=== PATIENT | female | born 1955 | race Caucasian/White ===

== ENCOUNTER 2019-02-23 07:39 | Day surgery (SDC) ==
[2019-02-23] MEDS: TETRACAINE 0.5% UNIT-DOSE OP PRN ×4 (07:55→08:51)
[2019-02-23] MEDS: BETADINE OPTH PREP OP PRN ×3 (07:55→08:40)
[2019-02-23] MEDS: CYCLOGYL 2% OPTH OP PRN ×3 (07:56→08:06)
[2019-02-23] MEDS ORDERED: BSS WITH EPINEPHRINE OP ONE (08:10)
[2019-02-23] MEDS ORDERED: ZOFRAN 4 MG/2 ML IVP ONE (08:10)
[2019-02-23] MEDS ORDERED: LIDOCAINE 1% 20 ML MDV ID STA (08:10)
[2019-02-23] MEDS ORDERED: LIDOCAINE 1%/PHENYLEPHRINE 1.5% BSS (SURGERY) INTRAOCULA ONE (08:10)
[2019-02-23] MEDS ORDERED: DEX-MOXI-KETOR OPTH INJ 1/0.5/0.4 MG/ML IO ONE (08:10)
[2019-02-23] MEDS ORDERED: SUBLIMAZE ONE (08:45)
[2019-02-23] MEDS ORDERED: ZOFRAN 4 MG/2 ML ONE (08:45)
[2019-02-23] MEDS ORDERED: VERSED ONE (08:45)
[2019-02-23] MEDS ORDERED: DIPRIVAN 20 ML VIAL IVP ONE (08:45)
[2019-02-23 12:36] VITALS: BP 121/59
== END 2019-02-23 09:45 | disposition home or self-care (01) ==
LOC: SURG 07:39
PROVIDERS: ATTEND Ophthalmology
DX: H25.812 Combined forms of age-related cataract, left eye (principal)